=== PATIENT | male | born 1940 | race Hispanic/Latino ===

== ENCOUNTER 2017-02-22 08:41 | Emergency (ER) | payer MEDICARE ==
--- NOTE | 2017-02-22 10:42 | Cat Scan Report ---
CT HEAD WITHOUT CONTRAST: HISTORY: Head injury. Serial contiguous axial images were obtained through the cranium. Intravenous contrast material was not administered. The ventricles are normal in size and appearance. There is no mass effect or midline shift. No areas of abnormally increased or decreased attenuation are seen. No mass lesion is seen. The mastoid air cells and visualized portions of the sinuses are normal. IMPRESSION: No acute intracranial process.
--- NOTE | 2017-02-22 10:44 | Cat Scan Report ---
CT SCAN OF THE CERVICAL SPINE: HISTORY: Neck injury, trauma. TECHNIQUE: Contiguous 1.25 mm axial images of the cervical spine were obtained. Sagittal and coronal reformatted images. FINDINGS: There is no evidence for displaced fracture, bone lesion or subluxation. Mild to moderate degenerative disc disease and facet arthropathy are identified. C3-4 is the most affected level. The prevertebral soft tissues are normal thickness. The dens is intact. IMPRESSION: Cervical spondylosis. No acute injury is appreciated.
[2017-02-22] MEDS ORDERED: XYLOCAINE 2%/ EPI 1:200,000 INFILTRATI ONE (11:44)
--- NOTE | 2017-02-22 11:46 | Emergency Department Report ---
ED Head Trauma HPI - General Chief complaint: Fall Stated complaint: BUSTED HEAD Time Seen by Provider: 02/22/17 11:18 Source: patient Mode of arrival: Wheelchair Limitations: Physical Limitation - History of Present Illness Initial comments: 76-year-old male past medical history diabetes, hypertension, mental retardation brought in by skilled nursing counselor for report of mechanical fall. As per skilled nursing weaving professor patient fell forward out of bed/chair and hit the back of his head on part of a chair. No reports of loss of consciousness as per skilled nursing weaving professor. Occurred this morning. Patient has history of multiple. On exam patient is awake alert pleasant cooperative, able to speak but nonsensical at baseline. Patient is at baseline as per weaving professor. Product Technician states that his urine has been slightly darker than usual as of late. Patient is able to say hello greet me and tell me his name but is unable to elaborate on what happened him other than stating that he fell on his head hurts. Awake and alert 1 to person. This is his baseline as per his weaving professor at bedside. No reports of injuries to any other body part other than head. Visible large laceration to back of scalp MD Complaint: head injury -: This morning Mechanism of Injury: mechanical fall Location: occipital Loss of Consciousness: no Previous Trauma to this Area: Yes Place: home Severity: moderate Severity scale (0 -10): 5 Quality: aching - Related Data Previous Rx's Medication Instructions Recorded Last Taken Type Acetaminophen [Acetaminophen TAB] 500 mg PO Q6HR PRN #20 tablet 02/22/17 Unknown Rx Cephalexin [Keflex] 500 mg PO Q12HR #10 cap 02/22/17 Unknown Rx Allergies/Adverse reactions: Allergies Allergy/AdvReac Type Severity Reaction Status Date / Time No Known Allergies Allergy Verified 08/04/14 09:28 ED Review of Systems ROS: Stated complaint: BUSTED HEAD Other details as noted in HPI Constitutional: other (multiple falls in the last few months). denies: chills, fever Eyes: denies: eye pain, eye discharge, vision change ENT: denies: ear pain, throat pain Respiratory: denies: cough, shortness of breath, wheezing Cardiovascular: denies: chest pain, palpitations Endocrine: no symptoms reported Gastrointestinal: denies: abdominal pain, nausea, diarrhea Genitourinary: denies: urgency, dysuria Musculoskeletal: denies: back pain, joint swelling, arthralgia Skin: denies: rash, lesions Neurological: denies: headache, weakness, paresthesias Psychiatric: denies: anxiety, depression Hematological/Lymphatic: denies: easy bleeding, easy bruising ED Past Medical Hx - Past Medical History Previous Medical History?: Yes Hx Hypertension: Yes Hx Diabetes: Yes Additional medical history: Mentally challenged, hx of falls while @ [facility] - Surgical History Past Surgical History?: Yes Hx Pacemaker: Yes - Social History Smoking Status: Never Smoker Substance Use Type: Prescribed - Medications Home Medications: Home Medications Medication Instructions Recorded Confirmed Last Taken Type Acetaminophen [Acetaminophen TAB] 500 mg PO Q6HR PRN #20 tablet 02/22/17 Unknown Rx Cephalexin [Keflex] 500 mg PO Q12HR #10 cap 02/22/17 Unknown Rx ED Physical Exam - General Limitations: Physical Limitation General appearance: alert, in no apparent distress - Expanded Head Exam Expanded Head exam: Present: laceration (large linear laceration to back of parietal/ occipital scalp) 1 - Laceration to this region here diagonal, linear, skin closely approximated , oozing blood. - Eye Eye exam: Present: normal appearance - ENT ENT exam: Present: mucous membranes moist - Neck Neck exam: Present: normal inspection - Respiratory Respiratory exam: Present: normal lung sounds bilaterally. Absent: respiratory distress - Cardiovascular Cardiovascular Exam: Present: regular rate, normal rhythm. Absent: systolic murmur, diastolic murmur, rubs, gallop - GI/Abdominal GI/Abdominal exam: Present: soft, normal bowel sounds - Rectal Rectal exam: Present: deferred - Extremities Exam Extremities exam: Present: normal inspection - Back Exam Back exam: Present: normal inspection - Neurological Exam Neurological exam: Present: alert (patient is alert to his name and can make simple conversation but cannot provide complex answers as he is mentally retarded), CN II-XII intact - Psychiatric Psychiatric exam: Present: normal affect, normal mood - Skin Skin exam: Present: warm, dry, intact, normal color. Absent: rash ED Course Vital Signs 02/22/17 02/22/17 09:08 12:32 Temperature 97.5 F L Pulse Rate 93 H Respiratory 18 16 Rate Blood Pressure 124/72 O2 Sat by Pulse 99 97 Oximetry - Laceration /Wound Repair Head Wound Location: head (large linear laceration approximately 5 cm tobacco parietal occipital scalp towards right side scalp) Wound Length (cm): 5 Wound's Depth, Shape: superficial Wound Explored: clean Irrigated w/ Saline (ccs): 100 Betadine Prep?: Yes Anesthesia: Lidocaine w/ Epi Volume Anesthetic (ccs): 5 Wound Debrided: minimal Sterile Dressing Applied?: Yes (triple antibiotic ointment and 4 x 4 gauze) Progress: Procedure tolerated well minimal bleeding good approximation achieved with 6 tylor to the laceration site. - Lab Data Result diagrams: 02/22/17 11:53 02/22/17 11:53 Lab Results 02/22/17 02/22/17 02/22/17 Range/Units 11:53 11:53 11:53 WBC 5.9 (4.5-11.0) K/mm3 RBC 4.57 (3.65-5.03) M/mm3 Hgb 13.2 (11.8-15.2) gm/dl Hct 40.8 (35.5-45.6) % MCV 89 (84-94) fl MCH 29 (28-32) pg MCHC 32 (32-34) % RDW 15.1 (13.2-15.2) % Plt Count 141 (140-440) K/mm3 Lymph % (Auto) 23.0 (13.4-35.0) % Sawyer % (Auto) 8.1 H (0.0-7.3) % Eos % (Auto) 1.0 (0.0-4.3) % Baso % (Auto) 0.4 (0.0-1.8) % Lymph # 1.4 (1.2-5.4) K/mm3 Sawyer # 0.5 (0.0-0.8) K/mm3 Eos # 0.1 (0.0-0.4) K/mm3 Baso # 0.0 (0.0-0.1) K/mm3 Seg Neutrophils % 67.5 (40.0-70.0) % Seg Neutrophils # 4.0 (1.8-7.7) K/mm3 Sodium 142 (137-145) mmol/L Potassium 4.5 (3.6-5.0) mmol/L Chloride 103.8 (98-107) mmol/L Carbon Dioxide 25 (22-30) mmol/L Anion Gap 18 mmol/L BUN 27 H (9-20) mg/dL Creatinine 1.1 (0.8-1.5) mg/dL Estimated GFR > 60 ml/min BUN/Creatinine Ratio 24.54 % Glucose 123 H (75-100) mg/dL Lactic Acid 1.30 (0.7-2.0) mmol/L Calcium 9.4 (8.4-10.2) mg/dL Urine Color (Yellow) Urine Turbidity (Clear) Urine pH (5.0-7.0) Ur Specific [place] (1.003-1.030) Urine Protein (Negative) mg/dL Urine Glucose (UA) (Negative) mg/dL Urine Ketones (Negative) mg/dL Urine Blood (Negative) Urine Nitrite (Negative) Urine Bilirubin (Negative) Urine Urobilinogen (<2.0) mg/dL Ur Leukocyte Esterase (Negative) Urine WBC (Auto) (0.0-6.0) /HPF Urine RBC (Auto) (0.0-6.0) /HPF Urine Bacteria (Auto) (Negative) /HPF Urine Mucus /HPF 02/22/17 Range/Units 12:32 WBC (4.5-11.0) K/mm3 RBC (3.65-5.03) M/mm3 Hgb (11.8-15.2) gm/dl Hct (35.5-45.6) % MCV (84-94) fl MCH (28-32) pg MCHC (32-34) % RDW (13.2-15.2) % Plt Count (140-440) K/mm3 Lymph % (Auto) (13.4-35.0) % Sawyer % (Auto) (0.0-7.3) % Eos % (Auto) (0.0-4.3) % Baso % (Auto) (0.0-1.8) % Lymph # (1.2-5.4) K/mm3 Sawyer # (0.0-0.8) K/mm3 Eos # (0.0-0.4) K/mm3 Baso # (0.0-0.1) K/mm3 Seg Neutrophils % (40.0-70.0) % Seg Neutrophils # (1.8-7.7) K/mm3 Sodium (137-145) mmol/L Potassium (3.6-5.0) mmol/L Chloride (98-107) mmol/L Carbon Dioxide (22-30) mmol/L Anion Gap mmol/L BUN (9-20) mg/dL Creatinine (0.8-1.5) mg/dL Estimated GFR ml/min BUN/Creatinine Ratio % Glucose (75-100) mg/dL Lactic Acid (0.7-2.0) mmol/L Calcium (8.4-10.2) mg/dL Urine Color Yellow (Yellow) Urine Turbidity Clear (Clear) Urine pH 7.0 (5.0-7.0) Ur Specific [place]ridge 1.012 (1.003-1.030) Urine Protein <15 mg/dl (Negative) mg/dL Urine Glucose (UA) Neg (Negative) mg/dL Urine Ketones Neg (Negative) mg/dL Urine Blood Sm (Negative) Urine Nitrite Neg (Negative) Urine Bilirubin Neg (Negative) Urine Urobilinogen < 2.0 (<2.0) mg/dL Ur Leukocyte Esterase Neg (Negative) Urine WBC (Auto) 2.0 (0.0-6.0) /HPF Urine RBC (Auto) 15.0 (0.0-6.0) /HPF Urine Bacteria (Auto) 1+ (Negative) /HPF Urine Mucus Few /HPF - Medical Decision Making A/P: Minor head trauma, scalp laceration 1-head CT and cervical spine CT is unremarkable, no signs of skull fracture or intracranial hemorrhage 2-labs unremarkable, EKG is paced rhythm. Urianalysis unremarkable 3-tetanus updated, Tylenol when necessary, triple antibiotic ointment site, short course Keflex 4- patient's counselor advised to have patient return to the ED in 7 days for staple removal or to have medical staff at the skilled nursing remove tylor in 7 days. 5- patient is at baseline behavior as per his skilled nursing counselor who is at bedside 6- concussion precautions, weaving professor instructed to return pt to the ED or have pt medically re-evaluated for any confusion from baseline, lethargy, chest pain , shortness of breath, abdominal pain, inability to tolerate by mouth, paresthesias, inability to ambulate. - NEXUS Criteria Focal neurological deficit present: No Midline spinal tenderness present: No Altered level of consciousness: Yes Intoxication present: No Distracting injury present: No NEXUS results: C-Spine cannot be cleared clinically by these results. Imaging is required. Critical care attestation.: If time is entered above; I have spent that time in minutes in the direct care of this critically ill patient, excluding procedure time. ED Disposition Clinical Impression: Minor head trauma Laceration of head Qualifiers: Encounter type: initial encounter Location of open wound of head: scalp Foreign body presence: without foreign body Qualified Code(s): S01.01XA - Laceration without foreign body of scalp, initial encounter Fall Qualifiers: Encounter type: initial encounter Qualified Code(s): W19.XXXA - Unspecified fall, initial encounter Disposition: TO HOME OR SELFCARE Is pt being admited?: No Does the pt Need Aspirin: No Condition: Stable Instructions: Staple Care (ED), Laceration (ED), Post Concussion Syndrome (ED) Additional Instructions: Stable to be removed from scalp in 7 days. Can be removed by nurse or clinical staff at skilled nursing facility or patient can return to ED for removal of tylor Prescriptions: Acetaminophen [Acetaminophen TAB] 500 mg PO Q6HR PRN #20 tablet PRN Reason: Pain Cephalexin [Keflex] 500 mg PO Q12HR #10 cap Referrals: PRIMARY CARE, [Primary Care Provider] - 3-5 Days Forms: Accompanied Note Time of Disposition: 14:02
[2017-02-22] MEDS ORDERED: TYLENOL PO ONE (11:56)
[2017-02-22 12:13] LABS: Basophils % (Auto) 0.4 % (0.0-1.8); Hematocrit 40.8 % (35.5-45.6); Hemoglobin 13.2 gm/dl (11.8-15.2); Mean Corpuscular HGB Conc 32 % (32-34); Mean Corpuscular Hemoglobin 29 pg (28-32); Mean Corpuscular Volume 89 fl (84-94); Platelet Count 141 K/mm3 (140-440); Red Blood Count 4.57 M/mm3 (3.65-5.03); Red Cell Distribution Width 15.1 % (13.2-15.2); White Blood Count 5.9 K/mm3 (4.5-11.0)
[2017-02-22 12:29] LABS: Anion Gap 18 mmol/L; BUN/Creatinine Ratio 24.54; Blood Urea Nitrogen 27 mg/dL (9-20); Calcium 9.4 mg/dL (8.4-10.2); Carbon Dioxide 25 mmol/L (22-30); Chloride 103.8 mmol/L (98-107); Glucose 123 mg/dL (75-100); Potassium 4.5 mmol/L (3.6-5.0); Sodium 142 mmol/L (137-145)
[2017-02-22 13:30] LABS: Bacteria,Urine 1+ /HPF (Negative); Bilirubin,Urine NEG (Negative); Blood,Urine SM (Negative); Ketones,Urine NEG (Negative); Leukocyte Esterase,Urine NEG (Negative); Mucus,Urine FEW /HPF; Nitrite,Urine NEG (Negative); Protein,Urine <15 mg/dL mg/dL (Negative); Urobilinogen,Urine < 2.0 mg/dL (<2.0)
[2017-02-22] MEDS ORDERED: BOOSTRIX IM ONE (13:56)
[2017-02-22 14:17] VITALS: BP 134/72
== END 2017-02-22 14:16 | disposition home or self-care (01) ==
LOC: ED 08:41
DX: I10 Essential (primary) hypertension (principal); E11.9 Type 2 diabetes mellitus without complications; S01.01XA Laceration without foreign body of scalp, initial encounter; W06.XXXA Fall from bed, initial encounter; Y93.89 Activity, other specified; Y92.89 Other specified places as the place of occurrence of the external cause; Y99.8 Other external cause status
CPT/HCPCS: 36415; 51701; 70450; 72125; 80048; 81001; 82140; 85025; 87076; 87086; 87186; 90471; 90715; 93005; 93010

== ENCOUNTER 2017-03-01 13:09 | Emergency (ER) | payer MEDICARE ==
[2017-03-01 13:28] VITALS: BP 145/79
--- NOTE | 2017-03-01 14:04 | Emergency Department Report ---
Suture/Staple Removal - HPI Chief Complaint: Medical Clearance Stated Complaint: TYLOR REMOVED Time Seen by Provider: 03/01/17 14:02 When Sutures or [place] Placed: 5-7 Days Ago Wound Location: Here for staple removal to midscalp, palced one week prior. no complaints. ED Review of Systems ROS: Stated complaint: TYLOR REMOVED Other details as noted in HPI Comment: All other systems reviewed and negative Constitutional: denies: chills, fever Eyes: denies: eye pain, eye discharge, vision change ENT: denies: ear pain, throat pain Respiratory: denies: cough, shortness of breath, wheezing Cardiovascular: denies: chest pain, palpitations Endocrine: no symptoms reported Gastrointestinal: denies: abdominal pain, nausea, diarrhea Genitourinary: denies: urgency, dysuria Musculoskeletal: denies: back pain, joint swelling, arthralgia Skin: denies: rash, lesions Neurological: denies: headache, weakness, paresthesias Psychiatric: denies: anxiety, depression Hematological/Lymphatic: denies: easy bleeding, easy bruising ED Past Medical Hx - Past Medical History Hx Hypertension: Yes Hx Diabetes: Yes Additional medical history: Mentally challenged, hx of falls while @ senior care - Surgical History Hx Pacemaker: Yes - Social History Smoking Status: Never Smoker - Medications Home Medications: Home Medications Medication Instructions Recorded Confirmed Last Taken Type Acetaminophen [Acetaminophen TAB] 500 mg PO Q6HR PRN #20 tablet 02/22/17 Unknown Rx Cephalexin [Keflex] 500 mg PO Q12HR #10 cap 02/22/17 Unknown Rx Suture Removal Exam - Exam General: Vital signs noted. No distress. Alert and acting appropriately. 5 tylor noted Wound: No Pathologic Erythema, No Tenderness, No Drainage, No Pus, No Wound Dehiscence Other Systems: All other systems reviewed and are unremarkable. ED Course Vital Signs 03/01/17 13:24 Temperature 98 F Pulse Rate 91 H Respiratory 16 Rate Blood Pressure 145/79 O2 Sat by Pulse 100 Oximetry - Reevaluation(s) Reevaluation #1: 03/01/17 14:03 NAD, stable for d/c. ED Recheck MDM - Differential Diagnosis Wound Recheck, Suture/Staple Removal - Medical Decision Making Tylor removed. Critical care attestation.: If time is entered above; I have spent that time in minutes in the direct care of this critically ill patient, excluding procedure time. ED Disposition Clinical Impression: Encounter for staple removal Disposition: DC- TO HOME OR SELFCARE Is pt being admited?: No Condition: Good Instructions: Staple Care (ED) Referrals: VIANCA OLVERA MD [Staff Physician] - 3-5 Days Time of Disposition: 14:04
== END 2017-03-01 14:20 | disposition home or self-care (01) ==
LOC: ED 13:09
DX: S01.01XD Laceration without foreign body of scalp, subsequent encounter (principal)